=== PATIENT | female | born 1980 | race Caucasian/White ===

== ENCOUNTER 2021-05-16 19:24 | Emergency (ER) | payer OTHER, SELFPAY ==
[2021-05-16 19:34] VITALS: BP 126/71; PULSE 70; RESP 18; TEMP 36.9; O2SAT 100
[2021-05-16 19:52] VITALS: BP 126/71; PULSE 80; RESP 20; TEMP 36.9; O2SAT 100
--- NOTE | 2021-05-16 20:34 | ED.GENADULT ---
HPI - General Adult General Chief complaint: Dental/Oral Stated complaint: swollen face, toothache Time Seen by Provider: 05/16/21 19:51 Source: patient Mode of arrival: ambulatory Limitations: no limitations History of Present Illness HPI narrative: Patient presents with chief complaint of lower left jaw pain that began on . Patient reports that she has a broken decayed tooth to the area. Patient reports that her other teeth in the area have been removed. Patient denies any drainage but reports swelling and discomfort to the gumline. She denies any fever, chills, nausea, vomiting, diarrhea. Patient states that she is attempting to find a dentist to have the tooth further treated. Patient denies any allergies to any medications. Patient reports having an agreement with her primary care doctor tomorrow. Related Data Allergies Allergy/AdvReac Type Severity Reaction Status Date / Time No Known Allergies Allergy Verified 05/16/21 19:54 Review of Systems Review of Systems: CONSTITUTIONAL: Denies fever, chills, or sweats. EYES: Denies visual changes, redness, or discharge. ENT: Reports dentalgia. Denies rhinorrhea, congestion, sore throat, or otalgia. CARDIOVASCULAR: Denies chest pain, palpitations, or edema. RESPIRATORY: Denies cough or dyspnea. GASTROINTESTINAL: Denies abdominal pain, nausea, vomiting, or diarrhea. GENITOURINARY: Denies dysuria or hematuria. SKIN: Denies rash or itching. MUSCULOSKELETAL: Denies back pain, joint pain, or myalgia. NEUROLOGIC: Denies headache, numbness, dizziness, or weakness. PSYCHIATRIC: Denies anxiety or depression. Exam Narrative: GENERAL: Well-appearing, well-nourished, and in no acute distress. HEAD: Normocephalic, atraumatic. EYES: PERRLA and EOMI. ENT: Nares clear, no rhinorrhea or epistaxis. Mucous membranes moist. Oropharynx without tonsillar hypertrophy exudate or other lesions. Bilateral TMs pearly rocha nonbulging. Fractured decayed tooth to the lower left gum. Patient mostly edentulous to the lower jaw. No abscess seen in the gumline. There is mild erythema without fluctuance. NECK: Supple. No adenopathy or masses. CHEST: Clear to auscultation. No respiratory distress. No wheezes rales or rhonchi HEART: Regular rate and rhythm. No murmur heard. Normal peripheral pulses. EXTREMITIES: Normal range of motion. No edema. SKIN: Warm, dry, no rash. NEURO: No focal deficits. Alert and oriented x3. PSYCH: Normal mood and affect. Course Vital Signs Vital signs: Vital Signs Temperature 98.4 F 05/16/21 19:34 Pulse Rate 70 05/16/21 19:34 Respiratory Rate 18 05/16/21 19:34 Blood Pressure 126/71 05/16/21 19:34 Pulse Oximetry 100 05/16/21 19:34 Temperature 98.4 F 05/16/21 19:52 Pulse Rate 80 05/16/21 19:52 Respiratory Rate 20 05/16/21 19:52 Blood Pressure 126/71 05/16/21 19:52 Pulse Oximetry 100 05/16/21 19:52 Medical Decision Making MDM Narrative Medical decision making narrative: Discussed with patient the importance of following up with dentist for definitive treatment. Patient directed to return to emergency department if she develops any worsening or emergent symptoms. Patient has stable vitals and is afebrile. Patient does not show signs of systemic infection. Patient will be discharged on Augmentin, naproxen and lidocaine viscous. Vital Signs Vital Signs: Vital Signs Temperature 98.4 F 05/16/21 19:34 Pulse Rate 70 05/16/21 19:34 Respiratory Rate 18 05/16/21 19:34 Blood Pressure 126/71 05/16/21 19:34 Pulse Oximetry 100 05/16/21 19:34 Temperature 98.4 F 05/16/21 19:52 Pulse Rate 80 05/16/21 19:52 Respiratory Rate 20 05/16/21 19:52 Blood Pressure 126/71 05/16/21 19:52 Pulse Oximetry 100 05/16/21 19:52 Discharge Plan Discharge Clinical Impression: Toothache Patient Disposition: Home, Self-Care Condition: Stable Instructions: Antibiotic Form, Toothache (ED) Additional
[2021-05-16] MEDS: KETOROLAC 30 MG/ML VIAL (*BKC) IM (20:44)
== END 2021-05-16 20:49 | disposition home or self-care (01) ==
PROVIDERS: Emergency Provider Emergency Medicine
DX: K08.89 Other specified disorders of teeth and supporting structures (principal)
CPT/HCPCS: 96372; 99283; J1885

== ENCOUNTER 2025-01-31 09:16 | Emergency (ER) | payer SELFPAY ==
--- NOTE | ~2025-01-31 | XR_ITS ---
CHEST RADIOGRAPH, PA AND LATERAL CLINICAL HISTORY: PT STATED right sided rib pain AFTER INJURY X 5DAYS AGO . COMPARISON: None available TECHNIQUE: PA and lateral views of the chest. FINDINGS The cardiomediastinal silhouette is unremarkable. The lungs are clear. IMPRESSION: No focal infiltrate or effusion. Reviewed, dictated and finalized at location A.
[2025-01-31 09:25] VITALS: BP 129/80; PULSE 76; RESP 16; TEMP 36.6; O2SAT 97
--- NOTE | 2025-01-31 09:35 | ED.GENADULT ---
HPI - General Adult General Chief complaint: Chest Pain Stated complaint: rib pain Time Seen by Provider: 01/31/25 09:19 History of Present Illness HPI narrative: 44-year-old female presenting to the emergency department for evaluation for right-sided rib pain. Patient was caring a table on Sunday and tripped injuring her right breast and right rib. Patient reports the pain did worsen on when she was making a bed she felt a pop on the right side. Reports that the pain worsened significantly since then. Patient states that she had difficulty sleeping last night as having difficulty breathing this morning. Patient is uncomfortable appearing but appears to be in no distress. Patient does have right-sided rib tenderness to palpation with no deformity, no chemosis, no crepitus. Related Data Allergies Allergy/AdvReac Type Severity Reaction Status Date / Time No Known Allergies Allergy Verified 05/16/21 19:54 Review of Systems Review of Systems: All systems reviewed & are unremarkable except as noted in HPI and below Exam Narrative: APPEARANCE: Well appearing, no pain, no distress, well-nourished. HEAD: normocephalic, atraumatic. EYES: PERRLA/EOMI, conjunctivae clear. NOSE: Normal no drainage EARS:TMS clear with good light reflex. THROAT: Pharynx clear, no exudate. NECK: Supple. No adenopathy, no masses. RESPIRATORY: Clear lung sounds bilaterally CARDIOVASCULAR: Regular rate and rhythm without murmurs rubs or gallops. ABDOMINAL: Soft, nontender, nondistended, normal bowel sounds MUSCULOSKELETAL: Right-sided lateral rib tenderness to palpation, no crepitus, no ecchymosis NEURO: Alert. Cranial nerves II through XII intact. Good gait. Good coordination SKIN: Warm, dry. Normal Color Course Vital Signs Vital signs: Vital Signs Temperature 97.9 F 01/31/25 09:25 Pulse Rate 76 01/31/25 09:25 Respiratory Rate 16 01/31/25 09:25 Blood Pressure 129/80 01/31/25 09:25 Pulse Oximetry 97 01/31/25 09:25 Oxygen Delivery Room Air 01/31/25 09:25 Temperature 97.9 F 01/31/25 11:11 Pulse Rate 74 01/31/25 11:11 Respiratory Rate 16 01/31/25 11:11 Blood Pressure 136/74 01/31/25 11:11 Pulse Oximetry 100 01/31/25 11:11 Oxygen Delivery Room Air 01/31/25 09:25 Medical Decision Making MDM Narrative Medical decision making narrative: 44-year-old female presented to the emergency department for evaluation for right-sided rib pain. Patient was provided [place] and Flexeril for pain control. Patient was also provided incentive spirometer. No evidence of pneumonia, pneumothorax or displaced rib fractures. Patient was updated results of workup patient was comfortable with plan for discharge and close follow-up. Differential Diagnosis Differential Diagnosis: Rib fracture, pneumonia, pneumothorax, pulmonary contusion Vital Signs Vital Signs: Vital Signs Temperature 97.9 F 01/31/25 09:25 Pulse Rate 76 01/31/25 09:25 Respiratory Rate 16 01/31/25 09:25 Blood Pressure 129/80 01/31/25 09:25 Pulse Oximetry 97 01/31/25 09:25 Oxygen Delivery Room Air 01/31/25 09:25 Temperature 97.9 F 01/31/25 11:11 Pulse Rate 74 01/31/25 11:11 Respiratory Rate 16 01/31/25 11:11 Blood Pressure 136/74 01/31/25 11:11 Pulse Oximetry 100 01/31/25 11:11 Oxygen Delivery Room Air 01/31/25 09:25 Imaging Data Radiologist's impression: Impressions Chest X-Ray 01/31/25 10:53 IMPRESSION: No focal infiltrate or effusion. Discharge Plan Discharge Clinical Impression: Chest pain, Fracture of rib Patient Disposition: Home Condition: Stable Instructions: Chest Pain (ED), How to Use an Incentive Spirometer (ED), Rib Fracture (ED) Additional Instructions: Ibuprofen for pain control. Flexeril for muscle spasm. Incentive spirometer as directed. If you have any worsening symptoms including worsening pain, worsening shortness of breath and/or fever then please call or return to the emergency department. Have close follow-up with your primary care physician. Patient Language: Greenlandic Prescriptions: New cyclobenzaprine 10 mg tablet 10 mg PO BID PRN (Reason: muscle spasm) Qty: 14 0RF No Action amoxicillin-pot clavulanate [Augmentin] 875-125 mg tablet 1 tablet PO Q12H Qty: 20 0RF lidocaine HCl [Lidocaine Viscous] 2 % solution 1 applic mucous membrane QID PRN (Reason: pain) Qty: 100 0RF Rx Instructions: Apply to cottonball and apply to area of pain naproxen 500 mg tablet 500 mg PO BID PRN (Reason: pain) Qty: 20 0RF Follow-up/Referrals: Lamont Flaherty MD [Primary Care Provider] - Stand Alone Forms: Work/School Release IP
--- OUTSIDE RECORDS SUMMARY | 2025-01-31 09:42 | XMS_ITS ---
Author Organization [facility] Address [address] [place] [address] Care Team Providers Care Varnish Maker Name Role Phone Lamont Flaherty Primary Care Provider REASON FOR VISIT wants to talk about medications Social History Sex Assigned At : Social History Observation Description Sex Assigned At Female Encounters Encounter Location Date Provider Diagnosis [address] [place] [address] 01/20/2025 Lamont Flaherty Plan Of Treatment No Information Progress Notes * Kinsey CLAYTONDOB:[birth year] (44 yo F)Acc No.[id number]:01/20/2025 UNLOCKED PROGRESS NOTE Patient: Kinsey RICHARDS Provider: Walter Flaherty :1980 A ge:44 Y S ex:Female Date:01/20/2025 [facility] [place] [facility] Subjective: * Chief Complaints: * 1 . Wants to talk about medications. * Medical History: Objective: * Vitals: Assessment: Plan: * Treatment: * * Electronic signature of Cresencio Flaherty , [id number] on 01/31/2025 at 09:41 AM CDT Sign off status: Pending * Provider: Walter Flaherty Date: 01/20/2025 Generated for Mikayla osullivan/Henrique/eTransmitting on: 01/31/2025 09:41 AM CDT
--- OUTSIDE RECORDS SUMMARY | 2025-01-31 09:42 | XMS_ITS | Patient Health Record ---
Author Organization [facility] Address [address] [place] [address] Care Team Providers Care Fire Prevention Officer Name Role Phone Lamont Flaherty Primary Care Provider JoseParamjit Unavailable [phone] AaliyahKirillie Unavailable Olga Angeles Unavailable [phone] Allergies No Known Allergies Results Component Value Reference Range Notes Buprenorphine and Metabolite (Urine test) Reviewed date:05/21/2024 10:33:10 AM Interpretation: Performing Lab:[facility], [address], [place], Phone - [phone], Director - PhDAbudu Notes/Report: Clinical Information:[id number] Buprenorphine Positive Confirmation p erformed by Mass Spectrometry Buprenorphine Positive Buprenorphine Conf, MS, UR 256 Cutoff=10 ng/m L Norbuprenorphine Positive Norbuprenorphine Conf, MS, UR 1073 Cutoff=10 n g/mL 12 Panel Urine Drug Screen Reviewed date:05/07/2024 01:56:33 PM Interpretation: Performing Lab: Notes/Report: THC POS TERESA neg MOP (OPI) neg AMP neg MET neg BAR neg BZO neg MDMA neg MTD neg OXY neg PCP neg BUP POS 12 Panel Urine Drug Screen Reviewed date:03/12/2024 02:22:36 PM Interpretation: Performing Lab: Notes/Report: THC pos TERESA neg MOP (OPI) neg AMP neg MET neg BAR neg BZO neg MDMA neg MTD neg OXY neg PCP neg BUP pos 12 Panel Urine Drug Screen Reviewed date:06/23/2024 10:29:13 AM Interpretation: Performing Lab: Notes/Report: THC POS TERESA neg MOP (OPI) neg AMP neg MET neg BAR neg BZO neg MDMA neg MTD neg OXY neg PCP neg BUP POS 12 Panel Urine Drug Screen Reviewed date:10/30/2024 10:50:26 AM Interpretation: Performing Lab: Notes/Report: THC POS TERESA neg MOP (OPI) neg AMP neg MET neg BAR neg BZO neg MDMA neg MTD neg OXY neg PCP neg BUP POS 12 Panel Urine Drug Screen Reviewed date:09/24/2024 10:10:16 AM Interpretation: Performing Lab: Notes/Report: THC POS TERESA neg MOP (OPI) neg AMP neg MET neg BAR neg BZO neg MDMA neg MTD neg OXY neg PCP neg BUP POS 12 Panel Urine Drug Screen Reviewed date:07/21/2024 09:26:54 AM Interpretation: Performing Lab: Notes/Report: THC POS TERESA neg MOP (OPI) neg AMP neg MET neg BAR neg BZO neg MDMA neg MTD neg OXY neg PCP neg BUP POS 12 Panel Urine Drug Screen Reviewed date:08/28/2024 10:43:22 AM Interpretation: Performing Lab: Notes/Report: THC POS TERESA neg MOP (OPI) neg AMP neg MET neg BAR neg BZO neg MDMA neg MTD neg OXY neg PCP neg BUP POS Reason For Referral Reason INFLAMED SEBACEOUS C YST ON BACK Diagnosis 1 Sebaceous cyst (L72. 3) Referral Organization [facility] Referring Provider First Name Lamont Referring Provider Last Name Krystina Referring Provider Speciality Internal M edicine Referred Provider Specialty Surgery Referral Priority Routine Medications Medication SIG (Take, Route, Frequency, Duration) Notes Start Date End Date Status Buprenorphine HCl-Naloxone HCl 8-2 MG 1 tablet under the tongue and allow to dissolve Sublingual Once a day 01/20/2025 Active Dicyclomine HCl 20 MG 1 tablet Orally Three times a day; Duration: 30 day(s) Will pickle processor Rx 12/1810/30/2024 Active Famotidine 20 MG 1 tablet at bedtime as needed Orally Once a day Active Immunizations Vaccine Route Administration Date Status Comme nts FLU VAC NO PRSV 4VAL 6 mo+ IM Intramuscular 05/05/2021 Administered Pt tolerated injection well. Voiced no questions or concerns. Social History Tobacco Use: Social History Observation Description Date Details (start date - stop date) Current Smoker NA - NA Sex Assigned At : Social History Observation Description Sex Assigned At Female Alcohol Screen (Audit-C) Question Answer Notes Did you have a drink containing alcohol in the p ast year? No PRAPARE Question Answer Notes Date Completed/Updated: 11/21/2023 What is your current housing situation? I have h ousing Are you worried about losing your housing? No What is the highest level of school that you have finished? 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 Check all that apply I do not have problems meeting my needs Has lack of transportation k ept you from medical appointments, meetings, work or from getting things needed for daily living? No How often do you see or talk to people that you care about and feel close to? (For example: talking to friends on the phone, visiting friends or family, going to gnosticism or club meetings) More than 5 times a week How stressed are you? Stress is when someone feels tense, nervous, anxious, or can\t sleep at night because their mind is troubled Quite a bit In the past year have you sp ent more than 2 nights in a row in a residential, nursing home, senior living center, or juvenile correctional facility? No Are you a refugee? No What country are you from? [place] Do you feel physically and e motionally safe where you currently live? Yes In the past year, have you b een afraid of your partner or ex-partner? No PRAPARE Score: 3 Tobacco Control (Standard) Question Answer Notes Tobacco use: Current smoker Additional Findings: Tobacco user Moderate cigar ette smoker (10-19 cigs/day) Problems Problem Type SNOMED Code ICD Code Onset Dates Problem Status W/U Status Risk Notes Problem Tobacco user (883952047) Nicotine dependence, unspecified, uncomplicated (F17.200) Active confirmed Problem Vitamin D deficiency (47601774) Vitamin D deficiency (E55.9) Active confirmed Problem Psychoactive substance dependence (4139276) Chemical dependency (F19.20) Active confirmed Problem Constipation (71556634) Constipation (K59.00) Active confirmed Problem Gastroesophageal reflux disease without esophagitis (505373155) Gastroesophageal reflux disease without esophagitis (K21.9) Active confirmed Problem Tobacco use (028217194) Tobacco use disorder (F17.200) Active confirmed Problem Menopausal symptom (11726627) Menopause syndrome (N95.1) Active confirmed Problem Opioid use disorder (2956324030) Opioid use disorder (F11.99) Active confirmed Problem Incontinence (66403704) Incontinence in female (R32) Active confirmed Problem Carpal tunnel syndrome (85637349) Carpal tunnel syndrome, bilateral (G56.03) Active confirmed Problem Mental disorder caused by drug (240951407) 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) Active confirmed Vital Signs Heart Rate 74 /min 10/30/2024 Temperature 97.8 degrees Fahrenheit 10/30/2024 Respiratory Rate 16 /min 10/30/2024 Blood pressure diastolic 74 mm Hg 10/30/2024 Oximetry 96 % 10/30/2024 Height 67 in 10/30/2024 Blood pressure systolic 126 mm Hg 10/30/2024 Weight 144.0 lbs 10/30/2024 BMI 22.55 kg/m2 10/30/2024 Encounters Encounter Location Date Provider Diagnosis [address] [address] 02/27/2024 Lamont Flaherty Sebaceous cyst L72.3 ; Opioid use with opioid-induced disorder F11.99 ; Nicotine dependence, unspecified, uncomplicated F17.200 ; Constipation K59.00 and Opioid use disorder F11.[address] [address] 05/07/2024 Olga Szlufik Opioid use with opioid-induced disorder F11.99 and Nicotine dependence, unspecified, uncomplicated F17.[address] [address] 06/23/2024 Olga Szlufik Opioid use with opioid-induced disorder F11.99 and Nicotine dependence, unspecified, uncomplicated F17.[address] [address] 07/21/2024 Olga Szlufik Opioid use disorder F11.[address] [address] 08/28/2024 Olga Szlufik Opioid use disorder F11.99 and Nicotine dependence, unspecified, uncomplicated F17.[address] [place] [address] 09/24/2024 Olga Lennylufik Opioid use with opioid-induced disorder F11.99 and Nicotine dependence, unspecified, uncomplicated F17.200 [facility] [address], [place] [address] 10/30/2024 Renata Fischer Opioid use with opioid-induced disorder F11.99 ; Diarrhea R19.7 and Nicotine dependence, unspecified, uncomplicated F17.[address] [place] [address] 12/17/2024 Lamont Flaherty Opioid use with opioid-induced disorder F11.99 ; Diarrhea R19.7 ; Gastroesophageal reflux disease without esophagitis K21.9 and Nausea and vomiting R11.2 [address] [place] [address] 01/20/2025 Paramjit Garcia Opioid use disorder F11.[address] [place] [address] 06/23/2024 Lamont Flaherty Encounter for screen ing for malignant neoplasm of colon Z12.11 [address] [place] [address] 12/12/2024 Renata Fischer [address] [place] [address] 12/16/2024 Lamont Flaherty [address] [place] [address] 01/14/2025 Lamont Flaherty Opioid use with opioid-induced disorder F11.[address] [place] [address] 01/20/2025 Renata Fischer Assessments Encounter Date Diagnosis (ICD Code) Assessment Notes Treatment Notes Treatment Clinical Notes Section Notes 01/14/2025 Opioid use with opioid-induced disorder (ICD-10 - F11.99) 10/30/2024 Diarrhea (ICD-10 - R19.7) 10/30/2024 Opioid use with opioid-induced disorder (ICD-10 - F11.99) 02/27/2024 Sebaceous cyst (ICD-10 - L72.3) 01/20/2025 Opioid use disorder (ICD-10 - F11.99) 09/24/2024 Nicotine dependence, unspecified, uncomplicated (ICD-10 - F17.200) 09/24/2024 Opioid use with opioid-induced disorder (ICD-10 - F11.99) 07/21/2024 Opioid use disorder (ICD-10 - F11.99) 12/17/2024 Opioid use with opioid-induced disorder (ICD-10 - F11.99) 05/07/2024 Nicotine dependence, unspecified, uncomplicated (ICD-10 - F17.200) 05/07/2024 Opioid use with opioid-induced disorder (ICD-10 - F11.99) 12/17/2024 Diarrhea (ICD-10 - R19.7) 06/23/2024 Encounter for screening for malignant neoplasm of colon (ICD-10 - Z12.11) Patient Educated with: Fecal Occult Blood Test.pdf (Fecal Occult Blood Test.pdf) 08/28/2024 Nicotine dependence, unspecified, uncomplicated (ICD-10 - F17.200) 08/28/2024 Opioid use disorder (ICD-10 - F11.99) 06/23/2024 Nicotine dependence, unspecified, uncomplicated (ICD-10 - F17.200) 06/23/2024 Opioid use with opioid-induced disorder (ICD-10 - F11.99) 12/17/2024 Gastroesophageal reflux disease without esophagitis (ICD-10 - K21.9) 02/27/2024 Opioid use with opioid-induced disorder (ICD-10 - F11.99) 10/30/2024 Nicotine dependence, unspecified, uncomplicated (ICD-10 - F17.200) 02/27/2024 Nicotine dependence, unspecified, uncomplicated (ICD-10 - F17.200) 12/17/2024 Nausea and vomiting (ICD-10 - R11.2) 02/27/2024 Constipation (ICD-10 - K59.00) 02/27/2024 Opioid use disorder (ICD-10 - F11.99) 05/07/2024 Other Client agrees to take medication as prescribed. Discussed medication side effects, adverse effects, risks, benefits, as well as interactions. Encouraged non-use of opioids and other illicit substances. Has naloxone. Discontinuing buprenorphine increases the risk of overdose upon return to illicit opioid use. Use of alcohol or benzodiazepines with buprenorphine increases the risk of overdose and . Education provided about safe storage of medications. Encouraged participation in recovery groups/counseling services. Contact office with questions or concerns. 06/23/2024 Other Patient agrees to take medication as prescribed. Discussed medication side effects, adverse effects, risks, benefits, as well as interactions. Encouraged non-use of opioids and other illicit substances. Has naloxone. Discontinuing buprenorphine increases the risk of overdose upon return to illicit opioid use. Use of alcohol or benzodiazepines with buprenorphine increases the risk of overdose and . Education provided about safe storage of medications. Encouraged participation in recovery groups/counseling services. Contact office with questions or concerns. 07/21/2024 Other Patient agrees to take medication as prescribed. Discussed medication side effects, adverse effects, risks, benefits, as well as interactions. Encouraged non-use of opioids and other illicit substances. Has naloxone. Discontinuing buprenorphine increases the risk of overdose upon return to illicit opioid use. Use of alcohol or benzodiazepines with buprenorphine increases the risk of overdose and . Education provided about safe storage of medications. Encouraged participation in recovery groups/counseling services. Contact office with questions or concerns. 08/28/2024 Other Patient agrees to take medication as prescribed. Discussed medication side effects, adverse effects, risks, benefits, as well as interactions. Encouraged non-use of opioids and other illicit substances. Has naloxone. Discontinuing buprenorphine increases the risk of overdose upon return to illicit opioid use. Use of alcohol or benzodiazepines with buprenorphine increases the risk of overdose and . Education provided about safe storage of medications. Encouraged participation in recovery groups/counseling services. Contact office with questions or concerns. Patient may self-administe r their own medications or may self-administe r their own oral medications per [facility] Protocol. 09/24/2024 Other Patient agrees to take medication as prescribed. Discussed medication side effects, adverse effects, risks, benefits, as well as interactions. Encouraged non-use of opioids and other illicit substances. Has naloxone. Discontinuing buprenorphine increases the risk of overdose upon return to illicit opioid use. Use of alcohol or benzodiazepines with buprenorphine increases the risk of overdose and . Education provided about safe storage of medications. Encouraged participation in recovery groups/counseling services. Contact office with questions or concerns. Patient may self-administe r their own medications or may self-administe r their own oral medications per [facility] Protocol. 10/30/2024 Other Patient agrees to take medication as prescribed. Discussed medication side effects, adverse effects, risks, benefits, as well as interactions. Encouraged non-use of opioids. Encouraged participation in recovery groups. Patient may contact office with questions or concerns. 01/20/2025 Other Patient agrees to take medication as prescribed. Discussed medication side effects, adverse effects, risks, benefits, as well as interactions. Encouraged non-use of opioids. Has naloxone. Recommended participation in recovery groups and/or counseling services. May contact office with questions or concerns. Patient may self-administe r their own medications or may self-administe r their own oral medications per [facility] Protocol. Plan Of Treatment No Information Medical (General) History Medical History History ICD Code Opioid use disorder F11.99 Tobacco use disorder F17.200 diarrhea Surgical History Surgery Date(Month/Year) Colon surgery TOTAL HYSTERECTOMY Hospitalization History Reason Date(Month/Year) [facility] 2014
[2025-01-31] MEDS: CYCLOBENZAPRINE HCL 10 MG TABLET PO (09:44)
[2025-01-31] MEDS: HYDROcodone/acetaminophen (*CRX) 5-325 MG TABLET 1 TAB PO (09:45)
[2025-01-31] MEDS: KETOROLAC 30 MG/ML VIAL (*BKC) IM (09:47)
[2025-01-31 11:11] VITALS: BP 136/74; PULSE 74; RESP 16; TEMP 36.6; O2SAT 100
== END 2025-01-31 11:14 | disposition home or self-care (01) ==
LOC: ANHED 09:40
PROVIDERS: Emergency Provider Emergency Medicine; PCP Internal Medicine
DX: R07.9 Chest pain, unspecified (principal); S22.39XA Fracture of one rib, unspecified side, initial encounter for closed fracture; W18.40XA Slipping, tripping and stumbling without falling, unspecified, initial encounter
CPT/HCPCS: 71046; 96372; 99283; A9270; J1885